=== PATIENT | male | born 1990 | race African-American/Black ===

== ENCOUNTER 2021-12-21 13:56 | Emergency (ER) | payer SELFPAY ==
[~2021-12-21] VITALS: Ht 193 cm; Wt 102.1 kg
== END 2021-12-21 16:25 | disposition home or self-care (01) ==
LOC: ED 13:56
DX: S82.892A Other fracture of left lower leg, initial encounter for closed fracture (principal); W21.05XA Struck by basketball, initial encounter; Y93.67 Activity, basketball; Y92.89 Other specified places as the place of occurrence of the external cause; Y99.8 Other external cause status